=== PATIENT | female | born 1980 | race Caucasian/White ===

== ENCOUNTER 2019-04-23 09:39 | Outpatient (CLI) | payer OTHER ==
[2019-04-23 10:46] LABS: BASOPHILS # (AUTO) 0.05 x10^3/uL (0-0.1); BASOPHILS % (AUTO) 1 % (0-1); EOSINOPHILS # (AUTO) 0.24 x10^3/uL (0-0.4); EOSINOPHILS % (AUTO) 4 % (1-7); LYMPHOCYTES # (AUTO) 2.01 x10^3/uL (1-3.4); LYMPHOCYTES % (AUTO) 33 % (22-44); MD NO; MEAN CORPUSCULAR HEMOGLOBIN 29.3 pg (27.0-34.8); MEAN CORPUSCULAR HGB CONC 34.2 g/dL (32.4-35.8); MEAN CORPUSCULAR VOLUME 85.6 fL (80-100); MEAN PLATELET VOLUME 9.6 fL (7.4-10.4); MONOCYTES # (AUTO) 0.55 x10^3/uL (0.2-0.8); MONOCYTES % (AUTO) 9 % (2-9); NEUTROPHILS # (AUTO) 3.32 x10^3/uL (1.8-6.8); NEUTROPHILS % (AUTO) 54 % (42-75); PLATELET COUNT 134 x10^3/uL (130-400); RED BLOOD COUNT 4.68 x10^6/uL (3.82-5.3); RED CELL DISTRIBUTION WIDTH 13.2 % (9.6-15.2)
[2019-04-23] MEDS ORDERED: None at this Time (15:22)
[2019-04-30] MEDS ORDERED: MIDAZOLAM 1 MG/ML, 2ML ONE (12:53)
[2019-04-30] MEDS ORDERED: FENTANYL PF 100 MCG/2ML ONE ×2 (12:53)
[2019-04-30] MEDS ORDERED: DEXAMETHASONE 4 MG/ML, 1ML ONE (12:56)
[2019-04-30] MEDS ORDERED: ONDANSETRON 2MG/ML, 2ML ONE (12:56)
[2019-04-30] MEDS ORDERED: ROCURONIUM 10MG/ML,5ML ONE (12:56)
[2019-04-30] MEDS ORDERED: PROPOFOL 10 MG/ML, 20ML ONE (12:56)
[2019-04-30] MEDS ORDERED: GLYCOPYRROLATE 0.2MG/1ML, 5ML ONE (12:56)
[2019-04-30] MEDS ORDERED: NEOSTIGMINE 1 MG/ML, 10ML ONE (12:56)
== END 2019-04-23 23:59 | disposition home or self-care (01) ==
LOC: STAR 09:39
PROVIDERS: ATTEND Obstetrics & Gynecology
DX: Z01.818 Encounter for other preprocedural examination (principal)
CPT/HCPCS: 36415; 84703; 85025

== ENCOUNTER 2019-04-30 11:25 | Day surgery (SDC) | payer OTHER ==
[2019-04-23 15:08] VITALS: BP 131/86
[~2019-04-30] VITALS: Ht 165.1 cm; Wt 88.1 kg
[~2019-04-30 11:25] MED LIST: None at this Time
[2019-04-30] MEDS ORDERED: LACTATED RINGERS 1,000 ML IV SCH (11:49)
[2019-04-30] MEDS ORDERED: BUPIVACAINE/PF 0.25% ONE (13:03)
[2019-04-30] MEDS ORDERED: EPINEPHRINE 1 MG/ML, 1ML ONE (13:03)
[2019-04-30 13:16] LABS: HCG UR SG 1.017 (1.003-1.030)
[2019-04-30] MEDS ORDERED: SCOPOLAMINE PATCH, 1.5MG PATCH.TD72 TD ONE (13:18)
[2019-04-30] MEDS ORDERED: ONDANSETRON 2MG/ML, 2ML IV PRN (13:30)
[2019-04-30] MEDS ORDERED: PROMETHAZINE 25 MG SUPP PR PRN (13:30)
[2019-04-30] MEDS ORDERED: FENTANYL PF 100 MCG/2ML IV PRN (13:30)
[2019-04-30] MEDS ORDERED: PROMETHAZINE 25 MG/ML, 1ML IM PRN ×2 (13:30)
[2019-04-30] MEDS ORDERED: MEPERIDINE/PF 25MG/0.5ML IVPush PRN (13:30)
[2019-04-30] MEDS ORDERED: PROMETHAZINE 25 MG/ML, 1ML IV PRN (13:30)
[2019-04-30] MEDS ORDERED: HALOPERIDOL 5 MG/ML IV PRN (13:30)
[2019-04-30] MEDS ORDERED: hydrALAzine 20 MG/ML, 1ML IV PRN (13:30)
[2019-04-30] MEDS ORDERED: OXYcodone 5 MG/5 ML ORAL.SOL UDC PO PRN (13:30)
[2019-04-30] MEDS ORDERED: ONDANSETRON ODT 8 MG PO PRN (13:30)
[2019-04-30] MEDS ORDERED: PROMETHAZINE 12.5 MG SUPP PR PRN (13:30)
[2019-04-30] MEDS ORDERED: METOPROLOL 1 MG/ML, 5ML IV PRN (13:30)
[2019-04-30] MEDS ORDERED: HYDROmorphone 2 MG/ML, 1ML IVPush PRN (13:30)
[2019-04-30] MEDS ORDERED: MORPHINE SULFATE 4 MG/ML, 1ML IVPush PRN (13:30)
[2019-04-30] MEDS ORDERED: DEXAMETHASONE 4 MG/ML, 1ML ONE (13:37)
[2019-04-30] MEDS ORDERED: CEFAZOLIN 1,000 MG ONE (13:37)
[2019-04-30] MEDS ORDERED: MIDAZOLAM 1 MG/ML, 2ML ONE (13:37)
[2019-04-30] MEDS ORDERED: ONDANSETRON 2MG/ML, 2ML ONE (13:37)
[2019-04-30] MEDS ORDERED: ROCURONIUM 10MG/ML,5ML ONE (13:37)
[2019-04-30] MEDS ORDERED: FENTANYL PF 100 MCG/2ML ONE ×5 (13:37→14:56)
[2019-04-30] MEDS ORDERED: GLYCOPYRROLATE 0.2MG/1ML, 5ML ONE (13:37)
[2019-04-30] MEDS ORDERED: NEOSTIGMINE 1 MG/ML, 10ML ONE (13:37)
[2019-04-30] MEDS ORDERED: PROPOFOL 10 MG/ML, 20ML ONE (13:37)
[2019-04-30] MEDS ORDERED: BUPIVACAINE/PF 0.25% INFIL ONE (14:05)
[2019-04-30] MEDS ORDERED: OXYcodone 5 MG/5 ML ORAL.SOL UDC ONE (14:57)
== END 2019-04-30 18:20 | disposition home or self-care (01) ==
LOC: OUT 11:25
PROVIDERS: ATTEND Obstetrics & Gynecology
DX: Z30.2 Encounter for sterilization (principal); Z30.432 Encounter for removal of intrauterine contraceptive device
CPT/HCPCS: 58670; 81025; 88302; J0171; J0690; J1100; J2250; J2405; J2704; J2710; J3010; J3490; J7120